=== PATIENT | male | born 1985 | race Caucasian/White ===

== ENCOUNTER 2023-02-07 10:45 | Emergency (ER) | payer BC ==
[~2023-02-07] VITALS: Ht 182.9 cm; Wt 96.2 kg
--- NOTE | 2023-02-07 10:58 | NUR ---
L lower back pain s/p lifting a bucket of water 1 hour [employer]. took aleve 30 mins w/ minimal relief
[2023-02-07] MEDS ORDERED: CARI350T PO (11:03)
[2023-02-07] MEDS ORDERED: IBUP-1957 PO (11:03)
--- NOTE | 2023-02-07 11:22 | NUR ---
Patient discharged to home in stable condition. Written and verbal after care instructions given. Patient verbalizes understanding of instruction.
[2023-02-07 11:23] VITALS: BP 134/78
== END 2023-02-07 11:23 | disposition home or self-care (01) ==
LOC: ER 10:49
DX: M54.50 Low back pain, unspecified (principal); Z79.899 Other long term (current) drug therapy; Z88.0 Allergy status to penicillin; Z88.1 Allergy status to other antibiotic agents